=== PATIENT | female | born 1935 | race Caucasian/White ===

== ENCOUNTER 2021-06-01 18:08 | Emergency (ER) | payer MEDICARE ==
[2021-06-01 20:51] LABS: BASOPHIL 0.7 % (0-2); EOSINOPHIL 1.2 % (0-7); HCT 38.3 % (37.0-47.0); LYMPHOCYTE 28.3 % (15-48); MCH 30.7 pg (25.0-31.0); MCHC 31.3 g/dL (32.0-36.0); MONOCYTE 5.2 % (0-12); MPV 10.3 fL (6.0-9.5); NEUTROPHIL 64.3 % (41-80); NRBC 0; PLT 241 K/uL (150-400); RBC 3.91 M/uL (4.20-5.40); RDW 13.7 % (11.5-14.0); WBC 5.8 K/uL (4.0-10.5)
[2021-06-01 21:02] LABS: INR 2.44 (0.9-1.2); PROTHROMBIN TIME 25.6 SECONDS (11.8-13.4)
[2021-06-01 21:03] LABS: PTT 38.9 SECONDS (24.4-34.7)
[2021-06-01 21:10] LABS: BUN/CREAT RATIO (CALC) 33.3 RATIO; CREATININE 0.75 mg/dL (0.51-0.95); POTASSIUM 4.4 mmol/L (3.5-5.1)
[2021-06-01 22:58] LABS: BILIRUBIN NEGATIVE (NEGATIVE); BLOOD 3+ Ery/uL (NEGATIVE); GLUCOSE (U) TRACE mg/dL (NORMAL); LEUKOCYTES 3+ Leu/uL (NEGATIVE); NITRITE POSITIVE (NEGATIVE); PROTEIN 3+ mg/dL (NEGATIVE); UROBILINOGEN >=8.0 mg/dL (0.2-1.0); pH 7.5 (5.0-9.0)
[2021-06-01 23:01] LABS: CLARITY TURBID (CLEAR); COLOR RED (YELLOW)
[2021-06-01 23:21] LABS: BACTERIA 3+; URINARY RBC TNTC
== END 2021-06-02 01:06 | disposition home or self-care (01) ==
LOC: FER 18:08
PROVIDERS: Emergency Medicine Emergency Medical Services
DX: N93.9 Abnormal uterine and vaginal bleeding, unspecified (principal); I10 Essential (primary) hypertension; E03.9 Hypothyroidism, unspecified; Z88.5 Allergy status to narcotic agent; Z86.711 Personal history of pulmonary embolism; Z79.01 Long term (current) use of anticoagulants; Z79.890 Hormone replacement therapy; Z79.899 Other long term (current) drug therapy; W07.XXXA Fall from chair, initial encounter; Y93.89 Activity, other specified; Y92.129 Unspecified place in nursing home as the place of occurrence of the external cause
CPT/HCPCS: 36415; 70450; 80048; 81001; 84484; 85025; 85610; 85730; 93005